=== PATIENT | female | born 1955 | race Caucasian/White ===

== ENCOUNTER 2017-05-28 08:12 | Outpatient (CLI) | payer OTHER | END 2017-05-28 08:13 | disposition critical access hospital (66) | LOC: EMS 08:12 | PROVIDERS: ATTEND Surgery | DX: T17.990A Other foreign object in respiratory tract, part unspecified in causing asphyxiation, initial encounter (principal) | CPT/HCPCS: A0425; A0429 ==

== ENCOUNTER 2017-05-28 08:23 | Emergency (ER) | payer OTHER ==
--- NOTE | 2017-05-28 08:57 | ED Physician Documentation ---
History of Present Illness - Stated complaint Stated Complaint: AIRWAY OBSTRUCTION - Chief complaint Chief Complaint: Heent - History obtained from History obtained from: Patient, EMS - History of Present Illness Timing: Prior to arrival - Additonal information Additional information: The patient is a 61-year-old female who arrives via ambulance after a vitamin tablet she was swallowing this morning became stuck in her throat, causing her to cough uncontrollably, and feel as if she is choking. By the time of arrival in the emergency department she has been spitting up fragments of the tablet. She feels like it is getting better, but continues to have oral secretions and uncontrolled coughing. She denies history of similar symptoms in the past. Review of Systems Constitutional: denies: Fever Nose: denies: Congestion Throat: reports: Swallowed foreign body Cardiac: denies: Chest pain / pressure Respiratory: reports: Cough. denies: Dyspnea GI: denies: Abdominal Pain, Nausea, Vomiting Skin: denies: Rash Musculoskeletal: denies: Neck pain Neurologic: denies: Syncope, Headache PD PAST MEDICAL HISTORY - Past Medical History Past Medical History: Yes Cardiovascular: Hypertension - Past Surgical History Past Surgical History: No - Present Medications Home Medications: Ambulatory Orders Medication Instructions Recorded Confirmed Lisinopril 0 mg PO DAILY 05/28/17 05/28/17 Loratadine 0 mg PO DAILY 05/28/17 05/28/17 hydroCHLOROthiazide [Hydrodiuril] 0 mg PO DAILY 05/28/17 05/28/17 - Allergies Allergies/Adverse Reactions: Allergies Allergy/AdvReac Type Severity Reaction Status Date / Time No Known Drug Allergies Allergy Verified 12/24/15 19:57 - Social History Does the pt smoke?: No Smoking Status: Never smoker Does the pt drink ETOH?: No Does the pt have substance abuse?: No - Immunizations Immunizations are current?: Yes PD ED PE NORMAL - Vitals Vital signs reviewed: Yes (hypertensive initially.) - General General: Alert and oriented X 3, Well developed/nourished, Other (episodic coughing.) - HEENT HEENT: Atraumatic, Ears normal, Pharynx benign - Neck Neck: Supple, no meningeal sign, No adenopathy, No JVD - Cardiac Cardiac: RRR, No murmur - Respiratory Respiratory: Clear bilaterally, Other (No wheezes, rales, or rhonchi. No stridor.) - Abdomen Abdomen: Soft, Non tender - Back Back: No CVA TTP - Derm Derm: No rash - Extremities Extremities: No edema, No calf tenderness / cord - Neuro Neuro: Alert and oriented X 3, No motor deficit, Normal speech Results - Vitals Vitals: Oxygen O2 Source Room air - Rads (name of study) CXR Radiology: Prelim report reviewed, EMP read contemporaneously, See rad report ( Normal 2 view chest radiography.) PD MEDICAL DECISION MAKING - ED course Complexity details: reviewed results, re-evaluated patient, considered differential, d/w patient, d/w family ED course: The patient's presentation is significant for oropharyngeal foreign body. Consideration was given to the possibility of aspiration. Breath sounds were clear bilaterally, and chest x-ray was normal. The patient was given ice water to drink, which she was able to do without difficulty swallowing. Her symptoms gradually resolved during her course of time in the emergency department. I discussed with her and her potentially worrisome signs or symptoms that should prompt reevaluation in the emergency department. Departure - Departure Disposition: 01 Home, Self Care Clinical Impression: Oropharyngeal aspiration Qualifiers: Encounter type: initial encounter Qualified Code(s): T17.208A - Unspecified foreign body in pharynx causing other injury, initial encounter Condition: Stable Instructions: ED Foreign Body Esophageal Rslv Follow-Up: Sabina Martin MD [Physician No Access] - Comments: Continue to cool drink water to help soothe your oropharynx and esophagus. Return to the emergency department if you develop increasing difficulty breathing, or otherwise worsening symptoms. Discharge Date/Time: 05/28/17 10:03
--- NOTE | 2017-05-28 09:10 | XRAY Preliminary Report ---
Exam: XR Chest 2 View PA/LAT IMPRESSION: Normal 2-view chest radiography. [facility] SITE ID: [id number]
--- NOTE | 2017-05-28 09:12 | XRAY Report ---
EXAM: CHEST RADIOGRAPHY EXAM DATE: 05/28/2017 09:03 AM. CLINICAL HISTORY: Cough; possible aspiration of vitamin tablet. COMPARISON: None. TECHNIQUE: 2 views. FINDINGS: Lungs/Pleura: No focal opacities evident. No pleural effusion. No pneumothorax. Normal volumes. Mediastinum: Heart and mediastinal contours are unremarkable. Other: None. IMPRESSION: Normal 2-view chest radiography. [facility] Referring Provider Line: [phone] SITE ID: [id number]
[2017-05-28 09:42] VITALS: BP 141/82
== END 2017-05-28 10:03 | disposition home or self-care (01) ==
LOC: ED 08:23
DX: T17.290A Other foreign object in pharynx causing asphyxiation, initial encounter (principal); X58.XXXA Exposure to other specified factors, initial encounter; Y92.019 Unspecified place in single-family (private) house as the place of occurrence of the external cause; I10 Essential (primary) hypertension
CPT/HCPCS: 71020; 99283

== ENCOUNTER 2018-04-07 21:34 | Emergency (ER) | payer OTHER ==
[2018-04-07 21:41] VITALS: BP 160/82
[2018-04-07] MEDS ORDERED: BACITRACIN OINT TOP STA (21:55)
[2018-04-07] MEDS ORDERED: CLINDAMYCIN 150 MG CAPSULE PO STA (21:56)
--- NOTE | 2018-04-07 21:59 | ED Physician Documentation ---
PD HPI UPPER EXT INJURY - Stated complaint Stated Complaint: L ELBOW LAC - Chief complaint Chief Complaint: Laceration - History obtained from History obtained from: Patient - History of Present Illness Location: Left, Elbow Type of injury: Fall Where injury occurred: Work Timing - onset: Yesterday Timing - duration: Days (1) Timing - details: Abrupt onset Pain level max: 3 Pain level now: 3 Improved by: Rest Worsened by: Moving, Palpating Associated symptoms: Swelling, Discolored (redness) Recently seen: Not recently seen - Additonal information Additional information: slipped in water and cut her elbow yesterday. Redness and swelling today. Review of Systems GI: denies: Vomiting Skin: denies: Rash Musculoskeletal: denies: Neck pain, Back pain Neurologic: denies: Focal weakness, Numbness, Headache PD PAST MEDICAL HISTORY - Past Medical History Cardiovascular: Hypertension - Past Surgical History Past Surgical History: No - Present Medications Home Medications: Ambulatory Orders Medication Instructions Recorded Confirmed Lisinopril 0 mg PO DAILY 05/28/17 05/28/17 Loratadine 0 mg PO DAILY 05/28/17 05/28/17 hydroCHLOROthiazide [Hydrodiuril] 0 mg PO DAILY 05/28/17 05/28/17 Clindamycin HCl [Clindamycin 300MG 300 mg PO Q6H #28 capsule 04/07/18 CAP] - Allergies Allergies/Adverse Reactions: Allergies Allergy/AdvReac Type Severity Reaction Status Date / Time No Known Drug Allergies Allergy Verified 04/07/18 21:42 - Social History Does the pt smoke?: No Smoking Status: Never smoker Does the pt drink ETOH?: No Does the pt have substance abuse?: No - Immunizations Immunizations are current?: Yes PD ED PE NORMAL - Vitals Vital signs reviewed: Yes - General General: Alert and oriented X 3, No acute distress - Derm Derm: Warm and dry - Extremities Extremities: Other (L elbow - 3x3 cm area of erythema, and mild swelling. Warmth present. no drainage. ) - Neuro Neuro: Alert and oriented X 3 Results - Vitals Vitals: Vital Signs - 24 hr 04/07/18 21:37 Temperature 35.9 C L Heart Rate 72 Respiratory 16 Rate Blood Pressure 160/82 H O2 Saturation 98 Oxygen O2 Source Room air PD MEDICAL DECISION MAKING - ED course Complexity details: considered differential, d/w patient ED course: Patient is a 62-year-old female with what appears to be a mild cellulitis surrounding a recent wound. We will place her on antibiotics and follow-up closely with her doctor. Tetanus is up-to-date. She is well-appearing, nontoxic. Afebrile. Patient counseled regarding signs and symptoms for which I believe and urgent re-evaluation would be necessary. Patient with good understanding of and agreement to plan and is comfortable going home at this time This document was made in part using voice recognition software. While efforts are made to proofread this document, sound alike and grammatical errors may occur. - Sepsis Event Vital Signs: Vital Signs - 24 hr 04/07/18 21:37 Temperature 35.9 C L Heart Rate 72 Respiratory 16 Rate Blood Pressure 160/82 H O2 Saturation 98 Oxygen O2 Source Room air Departure - Departure Disposition: 01 Home, Self Care Clinical Impression: Cellulitis Qualifiers: Site of cellulitis: extremity Site of cellulitis of extremity: upper extremity Laterality: left Qualified Code(s): L03.114 - Cellulitis of left upper limb Condition: Good Instructions: ED Infec Skin Cellulitis Follow-Up: your,doctor in 3 days for wound check. [Other] Prescriptions: Clindamycin HCl [Clindamycin 300MG CAP] 300 mg PO Q6H #28 capsule Comments: Return if you worsen. Take all antibiotics until gone. This should improve over the next 2 days Discharge Date/Time: 04/07/18 22:08
== END 2018-04-07 22:08 | disposition home or self-care (01) ==
LOC: ED 21:34
DX: L03.114 Cellulitis of left upper limb (principal); I10 Essential (primary) hypertension; W18.09XA Striking against other object with subsequent fall, initial encounter; W01.0XXA Fall on same level from slipping, tripping and stumbling without subsequent striking against object, initial encounter; Y92.89 Other specified places as the place of occurrence of the external cause; Y99.0 Civilian activity done for income or pay
CPT/HCPCS: 99283; A9270; 1040M

== ENCOUNTER 2019-07-06 15:53 | Outpatient (CLI) | payer OTHER ==
--- NOTE | 2019-07-10 09:31 | Mammography Report ---
Reason: SCREENING MAMMO Procedure Date: 07/06/2019 Accession Number: [id number] / [id number] Procedure: MGN - Screening Mammo Dig Bilat CPT Code: FULL RESULT: EXAM: Screening Mammo Dig Bilat DATE: 07/06/2019 4:22 PM CLINICAL HISTORY: Routine screening TECHNIQUE: (B) - Bilateral CC and MLO views were obtained. COMPARISON: [facility] 10/07/2015 and 01/28/2017 PARENCHYMAL PATTERN: (A) - The breasts demonstrate scattered fibroglandular densities bilaterally. FINDINGS: On the left there is a 1 cm nodular density not definitely present on prior studies in the 6:00 position with an associated calcification . Suggest spot compression and true lateral views and possible ultrasound. Otherwise negative left breast. On the right there is a nodule in the medial breast 3.5 cm from the nipple not definitely seen on the tangential projection. This appears similar to prior studies but has not been previously evaluated. Suggest spot compression and true lateral views and possible ultrasound. Otherwise negative right breast. IMPRESSION: Incomplete examination. BI-RADS category 0. Needs bilateral spot compression and true lateral views and possible ultrasound. RECOMMENDATION: (ADDMU) - Additional views using both Mammography and Ultrasound recommended. BI-RADS CATEGORY: (0) - Incomplete Examination - need additional evaluation. STANDARD QUALIFYING STATEMENTS: 1. This examination was not reviewed with the aid of Computer-Aided Detection (CAD). 2. A negative or benign imaging report should not preclude biopsy if clinically suspicious findings are present. 3. Dense breasts may obscure an underlying neoplasm. 4. This examination was reviewed without the aid of 3D breast imaging (tomosynthesis).
== END 2019-07-06 15:54 | disposition home or self-care (01) ==
LOC: DI.N 15:53
DX: Z12.31 Encounter for screening mammogram for malignant neoplasm of breast (principal); R92.8 Other abnormal and inconclusive findings on diagnostic imaging of breast
CPT/HCPCS: 77067

== ENCOUNTER 2019-08-03 08:06 | Outpatient (CLI) | payer OTHER ==
--- NOTE | 2019-08-03 13:20 | Mammography Report ---
Reason: ABN MAMMO - BILAT SPEC VIEWS Procedure Date: 08/03/2019 Accession Number: [id number] / [id number] Procedure: IRIS - Diag Special Views Dig Bilat CPT Code: Final Report FULL RESULT: EXAM: [facility]ieg Special Views Dig Bilat DATE: 08/03/2019 9:17 AM CLINICAL HISTORY: Diagnostic examination. Patient recalled from screening for bilateral breast nodules. TECHNIQUE: (B) - Bilateral CC, spot magnified CC and ML images are obtained. Focused right breast ultrasound is performed. COMPARISON: 07/06/2019 through 10/07/2015. PARENCHYMAL PATTERN: (A) - The breast(s) demonstrate(s) scattered fibroglandular densities. FINDINGS: The apparent left breast nodule with suggestion of associated calcification on cc view dissipates with spot magnification and is not seen on 3-D tomographic examination in CC projection. The left ML projection demonstrates 2 parallel coursing tortuous vessels as the underlying etiology for the overall 2-D mammographic appearance, typically benign finding. The right breast density seen in the medial breast 4 cm from the nipple and previously not identified on MLO projection, is replicated in CC projection on 3-D image 31. There is a isodense well-circumscribed 6 mm nodule approximately 4 cm from the nipple with potential right ML projection correlate on 3-D image 49 approximately 4 cm from the nipple. Focused right breast ultrasound is recommended. Unfortunately, the patient couldn't stay for the ultrasound examination at this time and elected to schedule a time for the ultrasound examination. IMPRESSION: Incomplete examination. BI-RADS category 0. RECOMMENDATION: (ADDUS) - Targeted ultrasound recommended. Right breast BI-RADS CATEGORY: (0) - Incomplete Examination - need additional evaluation. STANDARD QUALIFYING STATEMENTS: 1. This examination was not reviewed with the aid of Computer-Aided Detection (CAD). 2. A negative or benign imaging report should not preclude biopsy if clinically suspicious findings are present. 3. Dense breasts may obscure an underlying neoplasm. 4. This examination was reviewed with the aid of 3D breast imaging (tomosynthesis).
== END 2019-08-03 08:07 | disposition home or self-care (01) ==
LOC: DI 08:06
PROVIDERS: ATTEND General Practice
DX: R92.8 Other abnormal and inconclusive findings on diagnostic imaging of breast (principal)
CPT/HCPCS: 77066

== ENCOUNTER 2019-08-15 09:16 | Outpatient (CLI) | payer OTHER ==
--- NOTE | 2019-08-15 14:47 | Ultrasound Report ---
Reason: ABN MAMMO - SPEC VIEWS RT Procedure Date: 08/15/2019 Accession Number: [id number] / [id number] Procedure: US - Breast Unilateral Limited CPT Code: Final Report FULL RESULT: EXAM: Right Breast Ultrasound/Limited: CLINICAL HISTORY: The patient is an asymptomatic 63-year-old female presenting for targeted right breast ultrasound as a follow-up to a diagnostic mammogram (08/03/2019). TECHNIQUE: A high frequency transducer was utilized to evaluate the medial hemisphere (area of mammographic concern). Doppler characterization performed. Inventory Control Assistant static images obtained. COMPARISON: No prior breast ultrasounds FINDINGS: No solid mass, distortion or focus of hyperemia. Tiny avascular cysts are associated with an island of fibrous tissue in the 4:30 to 5:00 axis 5 cm from the nipple. This area measures up to 5 mm in net dimension and may correlate with the mammographic finding. There are no sonographically suspicious findings. Recommend short interval follow-up imaging to confirm stability. IMPRESSION: BI-RADS 3 - Probably Benign RECOMMENDATION: Short interval follow-up mammogram (with viktor) and ultrasound to confirm stability.
== END 2019-08-15 09:17 | disposition home or self-care (01) ==
LOC: DI 09:16
PROVIDERS: ATTEND General Practice
DX: R92.8 Other abnormal and inconclusive findings on diagnostic imaging of breast (principal)
CPT/HCPCS: 76642

== ENCOUNTER 2019-09-28 07:59 | Day surgery (SDC) | payer OTHER ==
[2019-09-28] MEDS ORDERED: LACTATED RINGERS 1,000 ML IV ONE (08:09)
[2019-09-28] MEDS ORDERED: MIDAZOLAM 2 MG/2 ML VIAL IVP ONE (09:46)
[2019-09-28] MEDS ORDERED: fentaNYL 250 MCG/5 ML VIAL IVP ONE (09:46)
[2019-09-28] MEDS ORDERED: ONDANSETRON 4 MG/2 ML VIAL ONE (11:16)
[2019-09-28 11:42] VITALS: BP 146/69
== END 2019-09-28 08:00 | disposition home or self-care (01) ==
LOC: SDS 07:59
PROVIDERS: ATTEND Surgery
PROC: 0DBN8ZX Excision of Sigmoid Colon, Via Natural or Artificial Opening Endoscopic, Diagnostic (ICD-10-PCS; principal; 2019-09-28 09:15)
DX: Z12.11 Encounter for screening for malignant neoplasm of colon (principal); K63.5 Polyp of colon; K57.30 Diverticulosis of large intestine without perforation or abscess without bleeding; I10 Essential (primary) hypertension; K21.9 Gastro-esophageal reflux disease without esophagitis
CPT/HCPCS: 45380; J3010; J7120

== ENCOUNTER 2021-04-01 12:54 | Outpatient (CLI) | payer MEDICARE, OTHER ==
--- NOTE | 2021-04-01 17:41 | DEXA Report ---
PROCEDURE: Dexa Spine and/or Hip INDICATIONS: POSTMENOPAUSAL TECHNIQUE: Dual energy x-ray absorptiometry (DXA) was performed on a Wave - [employer] App System. Regions measur ed are the AP Spine, femoral neck, and if needed forearm. COMPARISON: 04/16/2016 FINDINGS: Lumbar Spine: Bone Mineral Density 1.648 g/cm/cm,T score 3.9, normal bone mineral density Left Femoral Neck: Bone Mineral Density 1.276 g/cm/cm, T score 2.1, normal bone mineral density (T score greater or equal to -1.0: NORMAL) (T score from -1.1 to -2.4: OSTEOPENIA) (T score less than or equal to -2.5 to: OSTEOPOROSIS) Impression: Normal bone mineral density. Patients with diagnosis of osteoporosis or osteopenia should have regular bone mineral density assess ment. For those eligible for Medicare, routine testing is allowed once every 2 years. Testing frequ ency can be increased for patients who have rapidly progressing disease or for those who are receivin g medical therapy to restore bone mass. Reviewed by: Roberto Pate MD on 04/01/2021 5:39 PM PDT Approved by: Roberto Pate MD on 04/01/2021 5:39 PM PDT Station ID: [id number]
== END 2021-04-01 12:55 | disposition home or self-care (01) ==
LOC: DI 12:54
PROVIDERS: ATTEND Physician Assistant Medical
DX: Z13.820 Encounter for screening for osteoporosis (principal); Z78.0 Asymptomatic menopausal state

== ENCOUNTER 2021-04-29 12:44 | Outpatient (CLI) | payer MEDICARE, OTHER ==
--- NOTE | 2021-04-30 08:03 | Mammography Report ---
BILATERAL DIGITAL DIAGNOSTIC MAMMOGRAM 3D/2D: 04/29/2021 CLINICAL: Patient returns for a 6 month follow up of the right breast. Comparison is made to exams dated: 08/15/2019 ultrasound, 08/03/2019 mammogram, 07/06/2019 mammogram - [facility], 01/28/2017 mammogram, and 10/07/2015 mammogram - [facility]. There are scattered fibroglandular elements in both breasts. There is a stable 0.5 cm oval focal asymmetry in the right breast at 5 o'clock anterior depth. No other significant masses, calcifications, or other findings are seen in either breast. IMPRESSION: INCOMPLETE: NEEDS ADDITIONAL IMAGING EVALUATION Stable 0.5 cm focal asymmetry in the right breast is indeterminate. A targeted ultrasound is recommended and will immediately follow. This exam was interpreted at Station ID: [id number]. NOTE: For mammograms, a report in lay terms will be sent to the patient. Approximately 15% of breast malignancies will not be visualized mammographically. In the management of a palpable breast mass, a negative mammogram must not discourage biopsy of a clinically suspicious lesion. Electronically Signed By: Gonzalez Kimbrough M.D. slc/:04/29/2021 13:44:17 ACR BI-RADS Category 0: Incomplete 3340F PARENCHYMAL PATTERN: (A) - The breast(s) demonstrate(s) scattered fibroglandular densities. BI-RADS CATEGORY: (0) - 0 Ultrasound [id number] Immediate follow-up LATERALITY: (B)
--- NOTE | 2021-04-30 08:03 | Ultrasound Report ---
LIMITED ULTRASOUND OF RIGHT BREAST: 04/29/2021 CLINICAL: Patient returns today to evaluate an asymmetry in the right breast. Comparison is made to exams dated: 04/29/2021 mammogram, 08/15/2019 ultrasound - [facility], 01/28/2017 mammogram, 10/07/2015 mammogram - [facility], 07/06/2019 mammogram, and mammogram - [facility]. Real-time ultrasound of the right breast 3-5 o'clock region was performed. Kim scale images of the real-time examination were reviewed. The cyst in the right breast at 5 o'clock anterior depth is no longer seen. The asymmetry on right breast mammogram demonstrates long-term stability. No ultrasound correlate. There is an incidental lipoma at 3:00 2 cm from the nipple measuring 0.4 cm. No significant abnormalities were seen sonographically in the right breast. IMPRESSION: BENIGN There is no sonographic evidence of malignancy. Complicated cyst seen on prior ultrasound is resolved. Asymmetry on mammogram demonstrates long-term stability. Incidental small benign lipoma at 3:00. A 1 year screening mammogram is recommended. Exam findings were conveyed to the patient. This exam was interpreted at Station ID: [id number]. Electronically Signed By: Gonzalez Kimbrough M.D. slc/:04/29/2021 14:57:45 Ultrasound BI-RADS: 2 Benign BI-RADS CATEGORY: (2) - 2 RECOMMENDATION: (ANNUAL) - Recommend routine annual screening mammography. [id number] 1 year screening LATERALITY: (B)
== END 2021-04-29 12:45 | disposition home or self-care (01) ==
LOC: DI 12:44
PROVIDERS: ATTEND Internal Medicine
DX: R92.8 Other abnormal and inconclusive findings on diagnostic imaging of breast (principal)

== ENCOUNTER 2022-02-24 11:52 | Outpatient (CLI) | payer MEDICARE, OTHER ==
--- NOTE | 2022-02-24 15:34 | XRAY Report ---
PROCEDURE: Shoulder 3 View RT INDICATIONS: R SHOULDER PX TECHNIQUE: 3 views of the shoulder were acquired. COMPARISON: None. FINDINGS: Bones: No fractures or dislocations. No suspicious bony lesions. Visualized ribs appear intact. M oderate degenerative changes of the acromioclavicular joint. Soft tissues: No suspicious soft tissue calcifications. IMPRESSION: Moderate acromioclavicular osteoarthrosis. No acute osseous abnormality. If symptoms per sist or there is continued clinical concern, further evaluation with MRI or CT may be helpful. Reviewed by: Paulo Galeas MD on 02/24/2022 3:33 PM PDT Approved by: Paulo Galeas MD on 02/24/2022 3:33 PM PDT Station ID: [id number]
--- NOTE | 2022-02-24 15:35 | XRAY Report ---
PROCEDURE: Humerus RT INDICATIONS: R HUMERAL PX TECHNIQUE: 2 views of the humerus were acquired. COMPARISON: None FINDINGS: Bones: No acute fractures or dislocations. No suspicious bony lesions. Soft tissues: No suspicious soft tissue calcifications. IMPRESSION: No acute osseous abnormality. If symptoms persist or there is continued clinical concern, further santiago luation with MRI or CT may be helpful. Reviewed by: Paulo Galeas MD on 02/24/2022 3:34 PM PDT Approved by: Paulo Galeas MD on 02/24/2022 3:34 PM PDT Station ID: [id number]
== END 2022-02-24 11:53 | disposition home or self-care (01) ==
LOC: DI.N 11:52
PROVIDERS: ATTEND Physician Assistant
DX: M19.011 Primary osteoarthritis, right shoulder (principal)